=== PATIENT | male | born 1945 | race Caucasian/White ===

== ENCOUNTER 2018-12-21 12:44 | Emergency (ER) | payer MEDICARE, OTHER ==
[~2018-12-21] VITALS: Ht 175.3 cm; Wt 118.0 kg
[2018-12-21 13:05] VITALS: BP 151/80
[2018-12-21] MEDS ORDERED: CYCL-1 PO (14:15)
--- NOTE | 2018-12-21 14:28 | NUR ---
PT SEEN AND DC'D BY PROVIDER
== END 2018-12-21 14:28 | disposition home or self-care (01) ==
LOC: ER 12:44
DX: M54.5 Low back pain (principal); G89.29 Other chronic pain; Z88.8 Allergy status to other drugs, medicaments and biological substances; X58.XXXA Exposure to other specified factors, initial encounter; Y93.89 Activity, other specified; Y92.096 Garden or yard of other non-institutional residence as the place of occurrence of the external cause; Y99.8 Other external cause status
CPT/HCPCS: 99283